=== PATIENT | male | born 1975 | race Caucasian/White ===

== ENCOUNTER 2019-06-20 10:50 | Emergency (ER) | payer BC ==
[2019-06-20 11:59] VITALS: BP 189/120
[2019-06-20] MEDS ORDERED: AMLODIPINE BESYLATE 5 MG TABLET PO ONE (12:35)
--- NOTE | 2019-06-20 12:39 | ER Document Report ---
ED General - General Chief Complaint: High Blood Pressure Stated Complaint: HIGH BLOOD PRESSURE Time Seen by Provider: 06/20/19 12:19 - HPI Notes: 43-year-old male to the emergency department from urgent care with complaints of elevated blood pressure. He states that he is known that he has elevated blood pressure for some time but "does not believe in taking medicines". He states that he smokes and he drinks alcohol. He states he was at the urgent care try to get work clearance. He states that when they found that his blood pressure was elevated he was sent here for further evaluation. He denies any chest pain, shortness of breath, headache, focal neurological deficit, speech difficulty, dizziness, extremity weakness, gait disturbance. - Related Data Allergies/Adverse Reactions: No Known Allergies Allergy (Verified 06/20/19 12:17) Past Medical History - General Information source: Patient - Social History Smoking Status: Current Every Day Smoker Frequency of alcohol use: 2-4beers/day Drug Abuse: None Family History: DM, Hypertension Patient has suicidal ideation: No Patient has homicidal ideation: No - Past Medical History Cardiac Medical History: Reports: Hx Hypertension Review of Systems - Review of Systems Constitutional: denies: Chills, Diaphoresis, Fever EENT: No symptoms reported Cardiovascular: denies: Chest pain, Palpitations, Heart racing, Syncope, Dizziness, Lightheaded, Edema Respiratory: denies: Cough, Short of breath Gastrointestinal: denies: Abdominal pain, Diarrhea, Nausea, Vomiting Musculoskeletal: No symptoms reported. denies: Back pain Skin: No symptoms reported Neurological/Psychological: No symptoms reported. denies: Seizure, Lost consciousness, Headaches, Speech impairment, Numbness, Tingling -: Yes All other systems reviewed and negative Physical Exam - Vital signs Vitals: Temp Pulse Resp BP Pulse Ox 98.2 F 88 18 189/120 H 99 06/20/19 11:54 06/20/19 11:54 06/20/19 11:54 06/20/19 11:54 06/20/19 11:54 Interpretation: Hypertensive - General General appearance: Appears well, Alert In distress: None - HEENT Head: Normocephalic, Atraumatic Eyes: Normal Pupils: PERRL Ears: Normal External canal: Normal Tympanic membrane: Normal Sinus: Normal Nasal: Normal Mouth/Lips: Normal. No: Angioedema Pharynx: Normal. No: Uvular edema, Potential airway comprom. Neck: Normal, Supple. No: Lymphadenopathy, Meningismus - Respiratory Respiratory status: No respiratory distress Chest status: Nontender Breath sounds: Normal. No: Rales, Rhonchi, Wheezing Chest palpation: Normal - Cardiovascular Rhythm: Regular Heart sounds: Normal auscultation Murmur: No - Abdominal Inspection: Normal Distension: No distension Bowel sounds: Normal Tenderness: Nontender. No: Tender, McBurney's point, Ventura's sign, Guarding, Rebound Organomegaly: No organomegaly - Back Back: Normal, Nontender - Neurological Neuro grossly intact: Yes Cognition: Normal Orientation: AAOx4 Crenshaw Coma Scale Eye Opening: Spontaneous Crenshaw Coma Scale Verbal: Oriented Manan Coma Scale Motor: Obeys Commands Manan Coma Scale Total: 15 Speech: Normal Cranial nerves: Normal. No: Facial palsy, Forehead sparing, Gaze palsy, Sensory deficit, Tongue deviation Cerebellar coordination: Normal. 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 No: Pronator drift Sensory: Normal - Psychological Associated symptoms: Normal affect, Normal mood - Skin Skin Temperature: Warm Skin Moisture: Dry Skin Color: Normal Course - Re-evaluation Re-evalutation: 06/20/19 I had a lengthy conversation with patient about his blood pressure. He has asymptomatic accelerated blood pressure. He does not need further lab work or head CT at this time because he has no symptoms. However he does need to be started on blood pressure medicine. Advised that I will start him on Norvasc 5 mg and he will need to keep his appointment with primary care at the urgent care where he came from. He has an appointment on Sunday. Explained to the patient that I could not clear him for work either with his blood pressure like this and that he would need to take medicines in order to get under control. I explained to him the serious risks of untreated blood pressure. This included hemorrhagic stroke, renal failure, heart failure. I explained the side effects of Norvasc. I have encouraged him to return if he has any headaches, passing out, chest pain, shortness of breath, focal neurological deficit, extremity weakness, speech difficulty, gait disturbance. He agrees with the plan. Encourage smoking cessation and decreasing alcohol consumption. - Vital Signs Vital signs: Temp Pulse Resp BP Pulse Ox 98.2 F 88 18 189/120 H 99 06/20/19 11:54 06/20/19 11:54 06/20/19 11:54 06/20/19 11:54 06/20/19 11:54 Discharge - Discharge Clinical Impression: Elevated blood pressure reading Hypertension Qualifiers: Hypertension type: essential hypertension Qualified Code(s): I10 - Essential (primary) hypertension Condition: Stable Disposition: HOME, SELF-CARE Instructions: Calcium Channel Blockers ([facility]), High Blood Pressure ([facility]), High Blood Pressure, Requiring Treatment ([facility]) Additional Instructions: Keep your appointment on Sunday with your primary care physician. Obtain a blood pressure cuff and keep a blood pressure diary. Take your blood pressure twice a day. Implement lifestyle changes such as decreased alcohol, low sodium diet, stop smoking. You have been started today on Norvasc 5 mg. This is a calcium channel tripp for high blood pressure. Its major side effect is leg swelling. Return immediately to the emergency department if you have any worsening symptoms such as chest pain, shortness of breath, inability to speak, weakness in an arm or leg. Dizziness, severe headache, or any other concerning symptoms. Prescriptions: Amlodipine Besylate [Norvasc 5 mg Tablet] 5 mg PO DAILY #30 tablet Forms: Smoking Cessation Education
== END 2019-06-20 12:51 | disposition home or self-care (01) ==
LOC: ER 10:50
DX: I10 Essential (primary) hypertension (principal); F17.200 Nicotine dependence, unspecified, uncomplicated
CPT/HCPCS: 82962; 99283

== ENCOUNTER 2019-12-12 13:55 | Emergency (ER) | payer BC ==
[2019-12-12 15:07] LABS: ABSOLUTE EOSINOPHILS # (AUTO) 0.1 10^3/uL (0.0-0.6); ABSOLUTE LYMPHOCYTES (AUTO) 1.8 10^3/uL (0.5-4.7); ABSOLUTE MONOCYTES (AUTO) 0.9 10^3/uL (0.1-1.4); ABSOLUTE NEUT (AUTO) 6.5 10^3/uL (1.7-8.2); BASOPHILS % (AUTO) 0.4 % (0-2); EOSINOPHILS % (AUTO) 1.3 % (0-6); HEMOGLOBIN 14.3 g/dL (13.5-17.0); LYMPHOCYTES % (AUTO) 19.7 % (13-45); MEAN CORPUSCULAR VOLUME 86 fl (80-97); MONOCYTES % (AUTO) 9.3 % (3-13); PLATELET COUNT 353 10^3/uL (150-450); RED BLOOD COUNT 4.77 10^6/uL (4.35-5.55); RED CELL DISTRIBUTION WIDTH 13.9 % (11.5-14.0); SEGMENTED NEUTROPHILS % (AUTO) 69.3 % (42-78); TOTAL CELLS COUNTED % (AUTO) 100 %; WHITE BLOOD COUNT 9.3 10^3/uL (4.0-10.5)
[2019-12-12 15:20] LABS: APPEARANCE,URINE CLEAR; BILIRUBIN,URINE NEGATIVE (NEGATIVE); COLOR,URINE YELLOW; GLUCOSE, URINE NEGATIVE (NEGATIVE); KETONES,URINE TRACE mg/dL (NEGATIVE); LEUKOCYTE ESTERASE,URINE NEGATIVE (NEGATIVE); NITRITE,URINE NEGATIVE (NEGATIVE); PROTEIN,URINE NEGATIVE (NEGATIVE); URINE SPECIFIC GRAVITY 1.023; UROBILINOGEN,URINE NEGATIVE mg/dL (<2.0)
[2019-12-12 15:33] LABS: ALBUMIN 4.3 g/dL (3.5-5.0); ALKALINE PHOSPHATASE 49 U/L (38-126); ANION GAP 9 (5-19); ASPARTATE AMINO TRANSFERASE 29 U/L (17-59); BILIRUBIN,TOTAL 0.8 mg/dL (0.2-1.3); BLOOD UREA NITROGEN 19 mg/dL (7-20); CALCIUM 9.9 mg/dL (8.4-10.2); CARBON DIOXIDE 26 mmol/L (22-30); CHLORIDE 98 mmol/L (98-107); CREATINE KINASE 64 U/L (55-170); GLUCOSE 97 mg/dL (75-110); POTASSIUM 4.2 mmol/L (3.6-5.0); TOTAL PROTEIN 7.2 g/dL (6.3-8.2)
--- NOTE | 2019-12-12 16:52 | ER Document Report ---
Entered by RICHI PENN SCRIBE 12/12/19 1501 Acting as scribe for:WENDY ROCHE MD ED ENT - General Chief Complaint: Sore Throat Stated Complaint: SORE THROAT/COUGH Time Seen by Provider: 12/12/19 14:03 Mode of Arrival: Ambulatory Information source: Patient Notes: This 44 year old male patient presents to the emergency department today with complaints of feeling "worn down and tired" for the last three days. This patient was positive for strep throat on November 23 and he was sent home on amoxicillin. Two days later he noticed white sores in his throat and on the roof of his mouth, he went back to see the person he saw before who prescribed him some steroid gel. He went back on the and he had another positive strep test. Patient states he lost 15 pounds since the 23 of November. Patient does mention frequent urination as well. - Related Data Allergies/Adverse Reactions: No Known Allergies Allergy (Verified 06/20/19 12:17) Home Medications: Lisinopril. Amlodipine Past Medical History - General Information source: Patient - Social History Smoking Status: Former Smoker - quit November 19 2019 Cigarette use (# per day): No Frequency of alcohol use: None Drug Abuse: None Lives with: Family Family History: Reviewed & Not Pertinent, DM, Hypertension Patient has homicidal ideation: No - Past Medical History Cardiac Medical History: Reports: Hx Hypertension Surgical Hx: Negative Review of Systems - Review of Systems Constitutional: See HPI, Malaise, Weight loss - 15 lbs EENT: See HPI, Throat pain Cardiovascular: No symptoms reported Respiratory: No symptoms reported Gastrointestinal: No symptoms reported Genitourinary: See HPI, Frequency Male Genitourinary: See HPI, Erectile dysfunction Musculoskeletal: No symptoms reported Skin: No symptoms reported Hematologic/Lymphatic: No symptoms reported Neurological/Psychological: No symptoms reported -: Yes All other systems reviewed and negative Physical Exam - Vital signs Vitals: Temp Pulse BP Pulse Ox 98.4 F 100 149/87 H 99 12/12/19 14:00 12/12/19 14:00 12/12/19 14:12/12/19 14:00 - Notes Notes: Physical Exam: General: Alert, appears well. HEENT: Normocephalic. Atraumatic. PERRL. Extraocular movements intact. No posterior oropharynx erythema or exudate, airway is patent. Neck: Supple. Non-tender. Respiratory: No respiratory distress. Clear and equal breath sounds bilaterally. Cardiovascular: Regular rate and rhythm. Abdominal: Normal Inspection. Non-tender. No distension. Normal Bowel Sounds. Back: No gross abnormalities. Extremities: Moves all four extremities. Upper extremities: Normal inspection. Normal ROM. Lower extremities: Normal inspection. No edema. Normal ROM. Neurological: Normal cognition. AAOx4. Normal speech. Psychological: Normal affect. Normal Mood. Skin: Warm. Dry. Normal color. Course - Vital Signs Vital signs: Temp Pulse Resp BP Pulse Ox 98.4 F 100 149/87 H 99 12/12/19 14:00 12/12/19 14:00 12/12/19 14:00 12/12/19 14:00 - Laboratory Result Diagrams: 12/12/19 14:50 12/12/19 14:50 Laboratory results interpreted by me: 12/12/19 12/12/19 14:50 14:50 Sodium 133.0 L Urine Ketones TRACE H - Diagnostic Test Radiology reviewed: Image reviewed, Reports reviewed - Chest x-ray is unremarkable Discharge - Discharge Clinical Impression: Weight loss Fatigue Qualifiers: Fatigue type: unspecified Qualified Code(s): R53.83 - Other fatigue Condition: Stable Disposition: HOME, SELF-CARE Instructions: COVID-19 Guidance for Persons Under Investigation Additional Instructions: Fatigue: Fatigue can be caused by many medical and emotional problems. Fatigue can be an early symptom of infection, or can be caused by chronic infection. It can be a symptom of metabolic diseases like diabetes, hypothyroidism, or anemia. It can result from sleep problems such as sleep apnea. Fatigue can be a symptom of depression. Overuse of alcohol or caffeine can cause fatigue. Many drugs can cause fatigue, either as a side effect or when withdrawing from the drug. Until the evaluation is complete, try to keep up your normal activities. Get regular sleep hours, but avoid oversleeping. Try to get regular exercise. Eliminate alcohol, caffeine, and any unnecessary drugs, herbs, or medicines (d iscuss any changes in prescription medicines with your doctor). Contact the doctor if there is any change for the worse. Your lab work today was unremarkable other than a serum sodium that was a little bit low. The rapid strep test and the Monospot test were both negative. You are presently taking the generic version of Omnicef which should last about 6 more days. Your blood pressure was a little elevated today when you checked and it 149/87. Be sure you are taking your blood pressure medications. There is no obvious explanation for the weight loss you have been experiencing. If you are concerned about weight loss, you can increase your calorie intake. There is no clear explanation for the fatigue that you have been experiencing for the last few days. You should be sure and get plenty of rest. Do not miss your blood pressure medication doses. Monitor your blood pressure at home. Follow-up with your primary care provider if the weight loss and fatigue continues. You were COVID tested today. You should self isolate at home until you get the results back of the test which is usually in 3 days. RETURN TO THE EMERGENCY ROOM IF ANY NEW OR WORSENING SYMPTOMS. Forms: Return to Work I personally performed the services described in the documentation, reviewed and edited the documentation which was dictated to the scribe in my presence, and it accurately records my words and actions.
--- NOTE | 2019-12-12 16:55 | RADIOLOGY REPORT (SQ) ---
EXAM DESCRIPTION: CHEST SINGLE VIEW IMAGES COMPLETED DATE/TIME: 12/12/2019 4:46 pm REASON FOR STUDY: Fatigue and weight loss, smoker COMPARISON: None. EXAM PARAMETERS: NUMBER OF VIEWS: One view. TECHNIQUE: Single frontal radiographic view of the chest acquired. RADIATION DOSE: NA LIMITATIONS: None. FINDINGS: LUNGS AND PLEURA: No opacities, masses or pneumothorax. No pleural effusion. MEDIASTINUM AND HILAR STRUCTURES: No masses. Contour normal. HEART AND VASCULAR STRUCTURES: Heart normal in size. Normal vasculature. BONES: No acute findings. HARDWARE: None in the chest. OTHER: No other significant finding. IMPRESSION: NO ACUTE RADIOGRAPHIC FINDING IN THE CHEST. TECHNICAL DOCUMENTATION: JOB ID: [id number] [employer]- All Rights Reserved Reading location - IP/workstation name: [email or web address]
[2019-12-12 17:38] VITALS: BP 135/81
== END 2019-12-12 17:38 | disposition home or self-care (01) ==
LOC: ER 13:55
DX: R63.4 Abnormal weight loss (principal); R53.83 Other fatigue; J02.9 Acute pharyngitis, unspecified; R05 Cough; R35.0 Frequency of micturition; Z87.891 Personal history of nicotine dependence; I10 Essential (primary) hypertension; N52.9 Male erectile dysfunction, unspecified; Z20.828 Contact with and (suspected) exposure to other viral communicable diseases
CPT/HCPCS: 99283; 36415; 87070; 87880; 82550; 84443; 85025; 87635; 86308; 80053; 81001; 71045; C9803